=== PATIENT | female | born 1935 | race Caucasian/White ===

== ENCOUNTER 2018-08-28 08:52 | Day surgery (SDC) | payer MEDICARE ==
[~2018-08-28 08:52] MED LIST: Lactated Ringers 1,000 ML IV SCH; Sodium Chloride 0.9% 10 ML Syringe FLUSH PRN
[2018-08-28] MEDS ORDERED: Midazolam 1 MG/ML 2 ML SDV ONE ×2 (10:15→10:28)
[2018-08-28] MEDS ORDERED: Propofol 200 MG/20 ML SDV ONE ×3 (10:15→10:28)
--- NOTE | 2018-08-28 10:20 | PCM.PN ---
- General Info Date of Service: 08/28/18 - Review of Systems Systems Review Comment:: 83-year-old female referred by Sera Baker for colonoscopy. She has a history of colon polyps. The patient is medically stable to proceed today. Her recent history and physical is reviewed and no significant changes are noted. I have discussed the proposed colonoscopy with the patient. Risks and indications discussed. She agrees to proceed. - Patient Data Vitals - Most Recent: Last Vital Signs Temp 96.6 F 08/28/18 09:15 Pulse 85 08/28/18 09:15 Resp 20 08/28/18 09:15 BP 151/69 H 08/28/18 09:15 Pulse Ox 96 08/28/18 09:15 Weight - Most Recent: 115.666 kg Med Orders - Current: Current Medications Lactated Ringer's (Ringers, Lactated) 1,000 mls @ 125 mls/hr IV ASDIRECTED ENZO Last Admin: 08/28/18 09:42 Dose: 125 mls/hr Sodium Chloride (Saline Flush) 10 ml FLUSH ASDIRECTED PRN PRN Reason: Keep Vein Open Discontinued Medications Midazolam HCl (Versed 1 Mg/Ml) Confirm Administered Dose 2 mg .ROUTE .STK-MED ONE Stop: 08/28/18 10:16 Propofol (Diprivan 20 Ml) Confirm Administered Dose 400 mg .ROUTE .STK-MED ONE Stop: 08/28/18 10:16 - Problem List Review Problem List Initiated/Reviewed/Updated: Yes - Assessment Assessment:: history of colon polyps - Plan Plan:: colonoscopy
--- NOTE | 2018-08-28 11:11 | PCM.OPNOTE ---
- General Post-Op/Procedure Note Date of Surgery/Procedure: 08/28/18 Operative Procedure(s): colonoscopy with polypectomy Findings: extensive left colon diverticulosis Small hepatic flexure polyp Pre Op Diagnosis: History of colon polyps Post-Op Diagnosis: colon polyps. diverticulosis Anesthesia Technique: MAC Primary Surgeon: Garfield Malik Pathology: Hepatic Flexure polyp Output, Urine Amount: 0 EBL in mLs: 0 Complications: None Condition: Good Free Text/Narrative:: Intake & Output 08/27/18 08/28/18 08/28/18 22:59 06:59 14:59 Intake Total 400 Balance 400
[2018-08-28 14:43] VITALS: BP 136/70
--- NOTE | 2018-08-29 10:04 | OR ---
Date of Procedure: 08/28/2018 PREOPERATIVE DIAGNOSES: History of colon polyps. POSTOPERATIVE DIAGNOSES: 1. Colon polyp. 2. Left colon diverticulosis. OPERATIONS PERFORMED: Colonoscopy with polypectomy. INDICATIONS FOR SURGERY: This 83-year-old female has a history of colon polyps and comes today for surveillance colonoscopy. FINDINGS: A single polyp was noted on today's exam. This was located in the hepatic flexure. It is a 6-mm sessile polyp. The patient also has extensive diverticulosis of the left colon with multiple large diverticula although these do not appear to be acutely inflamed or otherwise complicated. PROCEDURE IN DETAIL: The patient was taken to the operating room. She was given intravenous sedation and with her in the left lateral decubitus position, digital rectal exam was performed showing no rectal masses. The Olympus colonoscope was inserted into the rectum. Retroflexed examination of the rectal canal was performed. The scope was then carefully advanced under direct visualization through the entire length of the colon until the cecum was reached. Cecal acquisition was confirmed by noting the normal internal cecal anatomy including the appendiceal orifice and ileocecal valve. The light was also noted to transilluminate the abdominal wall in the right lower quadrant. There was some tortuosity of the colon and hand pressure was required to reach the cecum. During insertion of the scope, the above-described polyp was identified in the hepatic flexure and this was removed with a cautery snare and retrieved into a polyp trap. After examining the cecum, the scope was slowly withdrawn sequentially re-examining the colonic segments. Once the entire colon and rectum had been fully examined and with no sign of any complication, the scope was removed and the patient was taken from the operating room in satisfactory condition. ESTIMATED BLOOD LOSS: 0. COMPLICATIONS: None. PROGNOSIS: Good. CARLTON Malik MD /[id number] MTDD
== END 2018-08-28 12:40 | disposition home or self-care (01) ==
LOC: LL.SDS 08:52
PROVIDERS: ATTEND Surgery
DX: Z12.11 Encounter for screening for malignant neoplasm of colon (principal); D12.3 Benign neoplasm of transverse colon; K57.30 Diverticulosis of large intestine without perforation or abscess without bleeding; E78.5 Hyperlipidemia, unspecified; M19.90 Unspecified osteoarthritis, unspecified site; I12.9 Hypertensive chronic kidney disease with stage 1 through stage 4 chronic kidney disease, or unspecified chronic kidney disease; N18.9 Chronic kidney disease, unspecified; Z79.899 Other long term (current) drug therapy; Z86.010 Personal history of colon polyps
CPT/HCPCS: 00812; J2250; J2704; J7120